=== PATIENT | female | born 2005 | race Hispanic/Latino ===

== ENCOUNTER 2025-10-15 17:06 | Emergency (ER) | payer SELFPAY ==
[2025-10-15 17:17] VITALS: BP 128/74; PULSE 92; RESP 18; TEMP 36.3; O2SAT 100
[2025-10-15 17:41] LABS: EDUAAPPEAR Clear; EDUABILI Negative (Negative); EDUABLOOD Negative (Negative); EDUACOLOR1 Yellow; EDUAGLUCOSE Negative (Negative); EDUAKETONE Negative (Negative); EDUALEUKO Trace (Negative); EDUANITRATE Negative (Negative); EDUAPH 5.5; EDUAPROTEIN Negative (Negative); EDUASPGRAVITY 1.010; EDUAUROBILI 0.2
--- NOTE | 2025-10-15 18:21 | ED.FEMALEGU ---
HPI - Female Genitourinary General Chief complaint: Urogenital-Female <Gregory Hatch APRN - Last Filed: 10/15/25 18:24> Stated complaint: urinary irritation <Gregory Hatch APRN - Last Filed: 10/15/25 18:24> Time Seen by Provider: 10/15/25 17:30 <Gregory Hatch APRN - Last Filed: 10/15/25 18:24> Source: patient and RN notes reviewed <Gregory Hatch APRN - Last Filed: 10/15/25 18:24> Mode of arrival: ambulatory <Gregory Hatch APRN - Last Filed: 10/15/25 18:24> Limitations: no limitations <Gregory Hatch APRN - Last Filed: 10/15/25 18:24> History of Present Illness HPI Narrative: 19-year-old female presents [facility] complaining of urinary symptoms for 30 days. Patient reports having dysuria, increased frequency, hesitancy. Patient denies any fevers, abdominal pain, body aches, chills, nausea, vomiting, diarrhea or blood in her urine. The patient has had 2 days ago she started developing vaginal irritation, vaginal itchiness, vaginal discharge, she reports a discharge of foul-smelling, white thick. Patient reports recent unprotected sex but denies any concerns for STDs. Patient has not taken anything [id number] for symptoms. Patient reported to nurse that she had painful intercourse the other day. Patient denies any significant past medical history. <Gregory Hatch APRN - Last Filed: 10/15/25 18:24> Related Data Allergies/Adverse reactions: Allergies Allergy/AdvReac Type Severity Reaction Status Date / Time No Known Allergies Allergy Verified 10/15/25 17:11 <Gregory Hatch APRN - Last Filed: 10/15/25 18:24> Review of Systems Review of Systems: CONSTITUTIONAL: Denies fever, chills, body aches, or sweats. EYES: Denies visual changes, redness, or discharge. ENT: Denies rhinorrhea, congestion, sore throat, or otalgia. CARDIOVASCULAR: Denies chest pain, palpitations, or edema. RESPIRATORY: Denies cough or dyspnea. GASTROINTESTINAL: Denies abdominal pain, nausea, vomiting, or diarrhea. GENITOURINARY: Positive for dysuria, hesitancy, vaginal irritation of vaginal discharge increased frequency. Negative for hematuria, pelvic pain. SKIN: Denies rash or itching. MUSCULOSKELETAL: Denies back pain, joint pain, or myalgia. NEUROLOGIC: Denies headache, numbness, or weakness. PSYCHIATRIC: Denies anxiety or depression. All other systems reviewed are negative, except as documented in HPI. <Gregory Hatch APRN - Last Filed: 10/15/25 18:24> PMFSH Comments At the time of my signature, I reviewed and agree with the nursing past medical, surgical, social, and family history. There is no relevant family history pertinent to the patient complaint. <Gregory Hatch APRN - Last Filed: 10/15/25 18:24> Exam Narrative: GENERAL: This is a well-nourished, well-developed adult, in no apparent distress. They are non ill-appearing, nontoxic appearing. HEAD: normocephalic, atraumatic. EYES: Sclera clear/white. Vision is grossly intact. Conjunctiva normal bilaterally. Extraocular movements intact. EARS: External ears normal,Hearing grossly intact. NOSE: External nose normal THROAT: Mucous membranes moist NECK: Normal range of motion CARDIOVASCULAR: Regular rate and rhythm. Normal S1-S2. No clicks, gallops, rubs, murmurs. RESPIRATORY: Respiratory rate normal, respiratory effort nonlabored, no respiratory distress. Lung sounds clear to auscultation throughout. Lung sounds equal bilaterally. No adventitious lung sounds. GASTROINTESTINAL: Abdomen soft, flat, non-tender, nondistended. Bowel sounds are active. No hepato-splenomegaly, or palpable masses. No guarding. No rebound tenderness. GENITOURINARY: Patient declined genital and pelvic exam. SKIN: warm, Dry, intact with no suspicious lesions or rash, good texture and turgor. NEURO: awake, alert, and oriented to person, place and time. There were no obvious focal neurologic abnormalities. EXTREMITIES: No joint tenderness, effusion, or edema noted. BACK: Nontender without deformity. No CVA tenderness. <Gregory Hatch APRN - Last Filed: 10/15/25 18:24> Course Course Emergency Course: Portions of this record may have been created with voice recognition software <Gregory Hatch APRN - Last Filed: 10/15/25 18:24> Level of Care: Express Care Visit <Gregory Hatch NURSE ANESTHESIA PROGRAM DIRECTOR - Last Filed: 10/15/25 18:24> Vital Signs Vital signs: Vital Signs Temperature 36.3 C L 10/15/25 17:17 Pulse Rate 92 10/15/25 17:17 Respiratory Rate 18 10/15/25 17:17 Blood Pressure 128/74 10/15/25 17:17 Pulse Oximetry 100 10/15/25 17:17 Oxygen Delivery Room Air 10/15/25 17:17 Temperature 36.3 C L 10/15/25 17:17 Pulse Rate 92 10/15/25 17:17 Respiratory Rate 18 10/15/25 17:17 Blood Pressure 128/74 10/15/25 17:17 Pulse Oximetry 100 10/15/25 17:17 Oxygen Delivery Room Air 10/15/25 17:17 <Gregory Hatch, NURSE ANESTHESIA PROGRAM DIRECTOR - Last Filed: 10/15/25 18:24> Vital Signs Temperature 36.3 C L 10/15/25 17:17 Pulse Rate 92 10/15/25 17:17 Respiratory Rate 18 10/15/25 17:17 Blood Pressure 128/74 10/15/25 17:17 Pulse Oximetry 100 10/15/25 17:17 Oxygen Delivery Room Air 10/15/25 17:17 Temperature 36.3 C L 10/15/25 17:17 Pulse Rate 92 10/15/25 17:17 Respiratory Rate 18 10/15/25 17:17 Blood Pressure 128/74 10/15/25 17:17 Pulse Oximetry 100 10/15/25 17:17 Oxygen Delivery Room Air 10/15/25 17:17 <Skylar Stringer, NURSE ANESTHESIA PROGRAM DIRECTOR - Last Filed: 10/18/25 13:43> MDM - Female Genitourinary MDM Narrative Medical decision making narrative: Urine dipstick for 1+ leukocytes Urine culture pending. Patient's symptoms consist her UTI, will treat her with Macrobid. Patient declined pelvic exam. Given patient's vaginal symptoms will also have patient self swab for general culture and bacterial vaginosis and will send off urine Trichomonas, chlamydia, gonorrhea. Patient's symptoms are concerning for vaginal yeast infection was started on fluconazole. Will wait for further treatment prior to culture urine results. Patient is not having OBGYN, referral given. Discussed physical exam findings. Advised supportive measures and signs/symptoms to go to the ER. Pt is appropriate for outpt treatment and f/u. <Gregory Hatch APRN - Last Filed: 10/15/25 18:24> Patient positive for BV, will treat with flagyl Urine dipstick for 1+ leukocytes Urine culture pending. Patient's symptoms consist her UTI, will treat her with Macrobid. Patient declined pelvic exam. Given patient's vaginal symptoms will also have patient self swab for general culture and bacterial vaginosis and will send off urine Trichomonas, chlamydia, gonorrhea. Patient's symptoms are concerning for vaginal yeast infection was started on fluconazole. Will wait for further treatment prior to culture urine results. Patient is not having OBGYN, referral given. Discussed physical exam findings. Advised supportive measures and signs/symptoms to go to the ER. Pt is appropriate for outpt treatment and f/u. <Skylar Stringer, NURSE ANESTHESIA PROGRAM DIRECTOR - Last Filed: 10/18/25 13:43> Differential Diagnosis Differential diagnosis: Likely urinary tract infection, cystitis and other (Pyelonephritis) <Gregory Hatch, NURSE ANESTHESIA PROGRAM DIRECTOR - Last Filed: 10/15/25 18:24> Lab Data Attestation: I reviewed the patient's lab results. <Gregory Hatch APRN - Last Filed: 10/15/25 18:24> Labs: Lab Results 10/15/25 10/15/25 Range/Units 17:39 17:55 POC Urine Color Yellow POC Urine Clarity Clear POC Urine pH 5.5 POC Ur Specif [place] 1.010 POC Urine Protein Negative (Negative) POC Ur Glucose (UA) Negative (Negative) POC Urine Ketones Negative (Negative) POC Urine Blood Negative (Negative) POC Urine Nitrite Negative (Negative) POC Urine Bilirubin Negative (Negative) POC Urine Urobilinogen 0.2 POC U Leukocyte Esteras Trace (Negative) C. trachomatis (PCR) Not detected (NOT DETECTE) N. gonorrhoeae (PCR) Not detected (NOT DETECTE) T. vaginalis (PCR) Not detected (NOT DETECTE) <Gregory Hatch APRN - Last Filed: 10/15/25 18:24> Lab Results 10/15/25 10/15/25 Range/Units 17:39 17:55 POC Urine Color Yellow POC Urine Clarity Clear POC Urine pH 5.5 POC Ur Specif [place] 1.010 POC Urine Protein Negative (Negative) POC Ur Glucose (UA) Negative (Negative) POC Urine Ketones Negative (Negative) POC Urine Blood Negative (Negative) POC Urine Nitrite Negative (Negative) POC Urine Bilirubin Negative (Negative) POC Urine Urobilinogen 0.2 POC U Leukocyte Esteras Trace (Negative) C. trachomatis (PCR) Not detected (NOT DETECTE) N. gonorrhoeae (PCR) Not detected (NOT DETECTE) T. vaginalis (PCR) Not detected (NOT DETECTE) <Skylar Stringer APRN - Last Filed: 10/18/25 13:43> Discharge Plan Discharge Clinical Impression: Urinary tract infection, Vaginal discharge, Bacterial vaginosis <Gregory Hatch APRN - Last Filed: 10/15/25 18:24> Patient Disposition: Home <Gregory Hatch APRN - Last Filed: 10/15/25 18:24> Condition: Stable <Gregory Hatch APRN - Last Filed: 10/15/25 18:24> Instructions: Antibiotic Form, Sexually Transmitted Diseases (ED), Safe Sex Practices (ED), Urinary Tract Infection in Women (ED), Yeast Infection (ED) <Gregory Hatch APRN - Last Filed: 10/15/25 18:24> Additional Instructions: Take the antibiotic as prescribed The urine will be sent of for a culture to identify what type of bacteria is causing your infection. If the culture shows that the antibiotic will not get rid of your infection, you will be notified and a new antibiotic will be called in for you. Increase water intake Take fluconazole as directed you may repeat a dose after 72 hours if symptoms are persisting for yeast infection. ?Your urine sample has been sent off to test for gonorrhea, chlamydia, and trichomonas infections. Genital culture and bacterial vaginosis swabs is also sent out. You Will be notified the results once they have resulted. Please remain abstinent until you know your results or have completed full treatment for an STD. Follow-up with PCP or OBGYN in 3-5 days. If your symptoms worsen, you developed fever, abdominal pain, nausea, vomiting, vaginal bleeding, pelvic pain or any other concerns please go to the ER immediately. <Gregory Hatch APRN - Last Filed: 10/15/25 18:24> Patient Language: Arabic <Gregory Hatch APRN - Last Filed: 10/15/25 18:24> Prescriptions: New fluconazole 150 mg tablet 150 mg PO Q72H Qty: 2 0RF Rx Instructions: May repeat dose in 72 hours if symptoms persist. nitrofurantoin monohyd/m-cryst [Macrobid] 100 mg capsule 100 mg PO Q12H 5 Days Qty: 10 0RF Rx Instructions: must administer with a meal/food metronidazole 500 mg tablet 500 mg PO Q12H 7 Days Qty: 14 0RF <Gregory Hatch APRN - Last Filed: 10/15/25 18:24> Follow-up/Referrals: PHYSICIAN,[employer] [facility] [Primary Care Provider, Internal Medicine] <Gregory Hatch APRN - Last Filed: 10/15/25 18:24> Time of Disposition: 17:59 <Gregory Hatch APRN - Last Filed: 10/15/25 18:24> 17:59 <Skylar Stringer APRN - Last Filed: 10/18/25 13:43>
[2025-10-15 20:07] LABS: Trichomonas Vag PCR NOT DETECTED (NOT DETECTE)
== END 2025-10-15 18:16 | disposition home or self-care (01) ==
DX: N39.0 Urinary tract infection, site not specified (principal); N76.0 Acute vaginitis; Z11.3 Encounter for screening for infections with a predominantly sexual mode of transmission
CPT/HCPCS: 81003; 87086; 87491; 87591; 87661; 87798; 99203; G0463